=== PATIENT | male | born 1955 | race Caucasian/White ===

== ENCOUNTER 2023-10-20 10:09 | Emergency (ER) | payer BC, MEDICARE ==
--- NOTE | 2023-10-20 10:54 | ED ---
General Adult HPI - General Chief complaint: Allergic Reaction Stated complaint: bee sting,AUBREY Time Seen by Provider: 10/20/23 10:17 Source: patient Mode of arrival: ambulatory Limitations: no limitations - History of Present Illness Initial comments: Dictation was produced using [employer] dictation software. please excuse any grammatical, word or spelling errors. Chief Complaint: 68-year-old male presents emergency department with bee stings History of Present Illness: Patient 60-year-old male he has past medical history of ID. Patient states that he was out back of his house trying to remove some bikes when he was stung at least a dozen times by bees. States that immediately after he started to feel like his throat was swelling and his lips started to become edematous. Denies any abdominal pain. Started to feel little lightheaded. Took some Benadryl at home however symptoms did not improve. Denies any wheezing. The ROS documented in this emergency department record has been reviewed and confirmed by me. Those systems with pertinent positive or negative responses have been documented in the HPI. All other systems are other negative and/or noncontributory. - Related Data Previous Rx's Medication Instructions Recorded EPINEPHrine (Auto Inject) [Epipen] 0.3 mg IM ONCE PRN #2 each 10/20/23 Allergies Allergy/AdvReac Type Severity Reaction Status Date / Time bee venom protein (honey bee) Allergy Rash/Hives Verified 10/20/23 10:16 Review of Systems ROS Statement: Those systems with pertinent positive or pertinent negative responses have been documented in the HPI. ROS Other: All systems not noted in ROS Statement are negative. Past Medical History Past Medical History: Myocardial Infarction (ID) History of Any Multi-Drug Resistant Organisms: None Reported Past Surgical History: Heart Catheterization With Stent Past Psychological History: No Psychological Hx Reported Smoking Status: Never smoker Past Alcohol Use History: Occasional Past Drug Use History: None Reported General Exam - General Exam Comments Initial Comments: PHYSICAL EXAM: General Impression: Alert and oriented x3, not in acute distress HEENT: Normocephalic atraumatic, extra-ocular movements intact, pupils equal and reactive to light bilaterally, mucous membranes moist, slight swelling to the posterior oropharynx Cardiovascular: Heart regular rate and rhythm Chest: Able to complete full sentences, no retractions, no tachypnea Abdomen: abdomen soft, non-tender, non-distended, no organomegaly Musculoskeletal: Pulses present and equal in all extremities, no peripheral edema Motor: no focal deficits noted Neurological: CN II-XII grossly intact, no focal motor or sensory deficits noted Skin: Intact with no visualized rashes Psych: Normal affect and mood Limitations: no limitations Course Vital Signs 10/20/23 10/20/23 10/20/23 10:13 10:52 11:10 Temperature 98.2 F 98.2 F Pulse Rate 92 87 Respiratory 18 16 17 Rate Blood Pressure 150/83 140/75 O2 Sat by Pulse 99 97 Oximetry 10/20/23 12:15 Temperature Pulse Rate 83 Respiratory 15 Rate Blood Pressure 139/82 O2 Sat by Pulse 97 Oximetry Medical Decision Making - Medical Decision Making Was pt. sent in by a medical professional or institution (, PA, CARE TECH, urgent care, hospital, or [facility]...) When possible be specific @ -No Did you speak to anyone other than the patient for history (EMS, parent, family, police, friend...)? What history was obtained from this source @ -No Did you review nursing and triage notes (agree or disagree)? Why? @ -I reviewed and agree with nursing and triage notes Were old charts reviewed (outside hosp., previous admission, EMS record, old EKG, old radiological studies, urgent care reports/EKG's, [facility] records)? Report findings @ -No old charts were reviewed Differential Diagnosis (chest pain, altered mental status, abdominal pain women, abdominal pain men, vaginal bleeding, musculoskeletal, weakness, fever, dyspnea, syncope, headache, dizziness, GI bleed, back pain, seizure, CVA, palpatations, mental health)? @ -Anaphylaxis, allergy, local reaction EKG interpreted by me (3pts min.). @ -None done X-rays interpreted by me (1pt min.). @ -None done CT interpreted by me (1pt min.). @ -None done U/S interpreted by me (1pt. min.). @ -None done What testing was considered but not performed or refused? (CT, X-rays, U/S, l abs)? Why? @ -None What meds were considered but not given or refused? Why? @ -None Was smoking cessation discussed for >3mins.? @ -No Were there social determinants of health that impacted care today? How? (Homelessness, low income, unemployed, alcoholism, drug addiction, transportation, low edu. Level, literacy, decrease access to med. care, [facility], rehab)? @ -No Was there de-escalation of care discussed even if they declined (Discuss DNR or withdrawal of care, Hospice)? DNR status @ -No What co-morbidities impacted this encounter? (DM, HTN, Smoking, COPD, CAD, Cancer, CVA, ARF, Chemo, Hep., AIDS, mental health diagnosis, sleep apnea, morbid obesity)? @ -None Was patient admitted / discharged? Hospital course, mention meds given and route, prescriptions, significant lab abnormalities, going to OR and other pertinent info. @ -68-year-old male presents with anaphylaxis. He was stung by bees and having upper respiratory infectious symptoms along with lightheadedness. Vital signs upon arrival are within acceptable limits. Patient given EpiPen monitored in the emergency department for approximately 3 hours. Reevaluated bedside at 1:09 PM found to be stable condition. Patient discharged advised follow-up with primary care doctor. Patient given prescriptions for EpiPen and counseled on anaphylaxis. Did you discuss the management of the patient with other professionals (pr ofessionals i.e. , PA, CARE TECH, lab, RT, psych nurse, social work program coordinator, recreation technician, teacher, radiation officer, case technician)? Give summary @ -No Was critical care preformed (if so, how long)? @ -Yes, 33 minutes Undiagnosed new problem with uncertain prognosis? @ -No Drug Therapy requiring intensive monitoring for toxicity (Heparin, Nitro, Insulin, Cardizem)? @ -No Were any procedures done? @ -No Diagnosis/symptom? Acute, or Chronic, or Acute on Chronic? Uncomplicated (without systemic symptoms) or Complicated (systemic symptoms)? @ -Anaphylaxis secondary to bee sting Side effects of treatment? @ -No Exacerbation, Progression, or Severe Exacerbation? @ -No Poses a threat to life or bodily function? How? (Chest pain, [place], ID, pneumonia, PE, COPD, DKA, ARF, appy, cholecystitis, CVA, Diverticulitis, Homicidal, Suicidal, threat to staff... and all critical care pts) @ -yes Disposition Clinical Impression: Anaphylaxis Disposition: HOME SELF-CARE Condition: Fair Instructions (If sedation given, give patient instructions): Anaphylaxis (ED) Prescriptions: EPINEPHrine (Auto Inject) [Epipen] 0.3 mg IM ONCE PRN #2 each PRN Reason: Anaphylaxis Is patient prescribed a controlled substance at d/c from ED?: No Referrals: Andrew Asher DO [Primary Care Provider] - 1-2 days Time of Disposition: 13:08
[2023-10-20] MEDS: FAMOTIDINE 20 MG TAB PO STA (11:00)
[2023-10-20] MEDS: dexAMETHasone 4 MG TAB PO STA (11:01)
[2023-10-20 13:01] VITALS: PULSE 83
[2023-10-20 13:34] VITALS: BP 130/83; RESP 16; TEMP 98.6
== END 2023-10-20 13:34 | disposition home or self-care (01) ==
LOC: EC 10:09
CPT/HCPCS: 93005; 96372; 99283